=== PATIENT | male | born 1965 | race Caucasian/White ===

== ENCOUNTER 2020-10-07 11:09 | Emergency (ER) | payer OTHER ==
[~2020-10-07] VITALS: Ht 175.3 cm; Wt 108.9 kg
[~2020-10-07 11:09] MED LIST: BACTRIM; CIPROFLOXACIN500 M1 PO; DIPHENOXYLATE/A1 TA1 PO; KEFLEX500 MG PO; METHADONE PO; NEXIUM; NORCO 5-325 TA1 EACH PO; OXYCODONE HCL 55 MG PO; PHENERGAN 25 MG25 M1 PO; ROBAXIN500 MG PO; ZOFRAN ODT4 MG PO
[2020-10-07] MEDS ORDERED: CYANOCOBAL1000 MCG/1 IM (11:13)
[2020-10-07] MEDS ORDERED: HYDROCHLOROTHIA25 M1 PO (11:13)
[2020-10-07] MEDS ORDERED: CARAFATE 1 GM TA1 G1 PO (11:13)
[2020-10-07] MEDS ORDERED: BACTRIM DS TAB1 EACH PO (11:13)
[2020-10-07] MEDS ORDERED: CEPHALEXIN500 MG PO (13:22)
[2020-10-07] MEDS ORDERED: DOXYCYCLINE 10100 MG PO (13:22)
[2020-10-07 13:23] VITALS: BP 130/94
== END 2020-10-07 13:41 | disposition home or self-care (01) ==
LOC: ER 11:09
DX: L97.518 Non-pressure chronic ulcer of other part of right foot with other specified severity (principal); Z98.890 Other specified postprocedural states; Z79.899 Other long term (current) drug therapy; Z88.6 Allergy status to analgesic agent; Z88.8 Allergy status to other drugs, medicaments and biological substances

== ENCOUNTER → 2020-10-12 | Outpatient (CLI) | payer OTHER ==
[~2020-10-12] MED LIST changes: +BACTRIM DS TAB1 EACH PO; +CARAFATE 1 GM TA1 G1 PO; +CEPHALEXIN500 MG PO; +CYANOCOBAL1000 MCG/1 IM; +DOXYCYCLINE 10100 MG PO; +HYDROCHLOROTHIA25 M1 PO
== END ==
LOC: HYPER 07:38
PROVIDERS: ATTEND Specialist
DX: L97.512 Non-pressure chronic ulcer of other part of right foot with fat layer exposed (principal); L89.899 Pressure ulcer of other site, unspecified stage; L03.031 Cellulitis of right toe; K21.9 Gastro-esophageal reflux disease without esophagitis; F41.9 Anxiety disorder, unspecified; Z87.891 Personal history of nicotine dependence